=== PATIENT | male | born 1990 | race Caucasian/White ===

== ENCOUNTER 2020-01-13 14:21 | Emergency (ER) | payer MEDICAID, OTHER ==
[~2020-01-13] VITALS: Ht 177.8 cm; Wt 65.9 kg
[~2020-01-13 14:21] MED LIST: LIDOcaine 1% W/epiNEPHrine 1:200,000 10ml vial ONE
[2020-01-13 14:30] VITALS: BP 140/77
[2020-01-13] MEDS ORDERED: TETanus/Pertussis (Acell)/Diphther VAC/PF (Tdap-Adult) 0.5ml syringe IMVAC ONE (15:45)
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
== END 2020-01-13 17:24 | disposition home or self-care (01) ==
LOC: ER 14:22
DX: S81.811A Laceration without foreign body, right lower leg, initial encounter (principal); Y08.89XA Assault by other specified means, initial encounter; Y93.89 Activity, other specified; Y92.89 Other specified places as the place of occurrence of the external cause; Y99.8 Other external cause status
CPT/HCPCS: 12002; 12032; 90471; 90715; 99283; 99284

== ENCOUNTER 2020-03-07 08:25 | Emergency (ER) | payer MEDICAID ==
[~2020-03-07] VITALS: Ht 175.3 cm; Wt 65.9 kg
[2020-03-07 08:28] VITALS: BP 135/79
[2020-03-07] MEDS ORDERED: IBUP-1984 PO (09:03)
== END 2020-03-07 09:12 | disposition home or self-care (01) ==
LOC: ER 08:25
DX: S93.492A Sprain of other ligament of left ankle, initial encounter (principal); Z79.899 Other long term (current) drug therapy; Y93.89 Activity, other specified; Y92.89 Other specified places as the place of occurrence of the external cause; Y99.8 Other external cause status
CPT/HCPCS: 73610; 99283

== ENCOUNTER 2021-07-01 10:28 | Emergency (ER) | payer MEDICAID ==
[~2021-07-01] VITALS: Ht 175.3 cm; Wt 81.8 kg
[2021-07-01 10:33] VITALS: BP 128/73
== END 2021-07-01 11:01 | disposition home or self-care (01) ==
LOC: ER 10:29
DX: J06.9 Acute upper respiratory infection, unspecified (principal); Z20.822 Contact with and (suspected) exposure to COVID-19; R05.9 Cough, unspecified; R50.9 Fever, unspecified; R06.02 Shortness of breath; R51.9 Headache, unspecified
CPT/HCPCS: 36415; 99283; U0003; U0005

== ENCOUNTER 2022-01-29 07:28 | Emergency (ER) | payer MEDICAID ==
[~2022-01-29] VITALS: Ht 175.3 cm; Wt 68.2 kg
[2022-01-29 07:45] VITALS: BP 136/69
== END 2022-01-29 09:40 | disposition left against medical advice (07) ==
LOC: ER 07:29
DX: Z04.6 Encounter for general psychiatric examination, requested by authority (principal); Z53.21 Procedure and treatment not carried out due to patient leaving prior to being seen by health care provider